=== PATIENT | male | born 1955 | race African-American/Black ===

== ENCOUNTER 2018-08-09 13:59 | Emergency (ER) | payer MEDICARE, OTHER ==
[~2018-08-09] VITALS: Ht 180.3 cm; Wt 77.1 kg
[~2018-08-09 13:59] MED LIST: NOR10T; NORVASC PO; OXYC-589; ZOLP-158
[2018-08-09 15:39] VITALS: BP 124/86
[2018-08-09] MEDS ORDERED: HYDROcodone-ACET 10/325MG TAB PO ONE (15:45)
== END 2018-08-09 16:06 | disposition home or self-care (01) ==
LOC: ER 14:00
DX: S39.012A Strain of muscle, fascia and tendon of lower back, initial encounter (principal); E11.9 Type 2 diabetes mellitus without complications; F17.210 Nicotine dependence, cigarettes, uncomplicated; X50.9XXA Other and unspecified overexertion or strenuous movements or postures, initial encounter; Y93.89 Activity, other specified; Y92.098 Other place in other non-institutional residence as the place of occurrence of the external cause; Y99.8 Other external cause status
CPT/HCPCS: 72110